=== PATIENT | female | born 2000 | race Hispanic/Latino ===

== ENCOUNTER 2023-12-26 10:30 | Emergency (ER) | payer SELFPAY ==
[2023-12-26 10:39] VITALS: BP 119/97; PULSE 86; RESP 16; TEMP 37.4; O2SAT 98; BMI 38.2
[2023-12-26 11:57] LABS: Adenovirus Not Detected (Not Detect); B. parapertussis Not Detected (Not Detecte); Bordetella pertussis Not Detected (Not Detect); Chlamydophila pneumoniae Not Detected (Not Detect); Coronavirus 229E Not Detected (Not Detect); Coronavirus HKU1 Not Detected (Not Detect); Coronavirus NL 63 Not Detected (Not Detect); Coronavirus OC43 Not Detected (Not Detect); Human Metapneumovirus Not Detected (Not Detect); Human Rhinovirus/Enterovirus Not Detected (Not Detect); Influenza A Not Detected (Not Detect); Influenza B Not Detected (Not Detect); Mycoplasma pneumoniae Not Detected (Not Detect); Parainfluenza Virus 1 Not Detected (Not Detect); Parainfluenza Virus 2 Not Detected (Not Detect); Parainfluenza Virus 3 Not Detected (Not Detect); Parainfluenza Virus 4 Not Detected (Not Detect); Respiratory Syncytial Virus Detected (Not Detect); SARS- CoV-2 Not Detected (Not Detecte)
--- NOTE | 2023-12-26 12:27 | ED.URI ---
HPI - URI/Sore Throat <Milly Gray PA-C - Last Filed: 12/26/23 12:31> General Chief Complaint: Upper Respiratory Symptoms Stated Complaint: V/Fever/chills/ pos.RSV/ Time Seen by Provider: 12/26/23 12:04 Source: patient Mode of arrival: Family Vehicle History of Present Illness HPI Narrative: 22-year-old female with past medical history asthma presents to the ED with 4 days of URI symptoms. Patient endorses sore throat, cough, myalgias, fatigue, nausea, vomiting. Patient also started experiencing diarrhea this morning. Patient states that she is having trouble tolerating p.o.. Patient has been exposed to RSV with several sick members of the family. Patient denies chest pain, shortness of breath. Patient has been using the albuterol inhaler prescribed to her for asthma as needed. Related Data Previous Rx's Medication Instructions Recorded ondansetron 4 mg disintegrating 4 mg PO Q8H PRN nausea and 12/26/23 tablet vomiting #10 tabs Allergies Allergy/AdvReac Type Severity Reaction Status Date / Time amoxicillin Allergy Hives Verified 12/26/23 10:47 benzonatate Allergy Verified 12/26/23 10:47 [From Marvin Davis] Review of Systems <Milly Gray PA-C - Last Filed: 12/26/23 12:31> Constitutional Constitutional: Reports body ache(s), Denies chills, Reports fatigue, Denies fever(s), Denies frequent falls, Denies lethargy and Denies weakness Eyes Eyes: Denies change in vision, Denies eye discharge, Denies irritation and Denies loss of vision ENT Ears, Nose, Mouth, and Throat: Denies change in voice, Denies dizziness, Denies neck pain, Reports sore throat and Denies throat swelling Cardiovascular Cardiovascular: Denies chest pain, Denies irregular heart rhythm, Denies lightheadedness, Denies palpitations, Denies dyspnea, Denies dyspnea on exertion and Denies orthopnea Respiratory Respiratory: Reports cough, Denies dyspnea, Denies dyspnea on exertion and Denies wheezing Gastrointestinal Gastrointestinal: Denies abdominal pain, Denies change in bowel habits, Reports diarrhea, Reports nausea and Reports vomiting Musculoskeletal Musculoskeletal: Denies neck pain and Denies numbness Integumentary/Breasts Skin/Breast: Denies pruritus, Denies erythema, Denies rash and Denies wounds Neurologic Neurologic: Denies behavioral changes, Denies confusion, Denies dizziness, Denies frequent falls, Denies loss of vision, Denies numbness and Denies weakness Psychiatric Psychiatric: Denies anxiety, Denies behavioral changes, Denies confusion, Denies depression, Denies homicidal ideation and Denies suicidal ideation Endocrine Endocrine: Reports fatigue, Denies flushing and Denies palpitations Hematologic/Lymphatic Hematologic/Lymphatic: Denies easy bruising Allergic/Immunologic Allergic/Immunologic: Denies urticaria, Denies throat swelling and Denies wheezing Patient History <Milly Gray PA-C - Last Filed: 12/26/23 12:31> Social History Smoking Status: Former smoker Smoking Status: Former smoker tobacco type: cigarettes alcohol intake frequency: 0-2 drinks per day Substance Use Type: does not use Exam <Milly Gray PA-C - Last Filed: 12/26/23 12:31> Narrative Exam Narrative: Const General:?cooperative, healthy appearing and comfortable [facility] Head:?normal to inspection Ears:?hearing grossly normal bilaterally Nose:?external nose normal Face and sinus:?normal facial exam and sinuses nontender Mouth:?oral mucosae normal Throat:?posterior oropharynx normal Eyes General:?appearance normal, both eyes and all related structures Neck Neck:?normal visual inspection and no lymphadenopathy noted Resp Effort & Inspection:?normal respiratory effort Auscultation:?clear to auscultation bilaterally Cardio Rate:?regular rate Rhythm:?regular rhythm Neuro General:?patient alert, patient awake and patient oriented x3 Initial Vital Signs Initial Vital Signs: Vital Signs Temperature 99.3 F 12/26/23 10:39 Pulse Rate 86 12/26/23 10:39 Respiratory Rate 16 12/26/23 10:39 Blood Pressure 119/97 H 12/26/23 10:39 Pulse Oximetry 98 12/26/23 10:39 Oxygen Delivery Method Room Air 12/26/23 10:39 <Shania Hastings MD - Last Filed: 12/27/23 18:26> Initial Vital Signs Initial Vital Signs: Vital Signs Temperature 99.3 F 12/26/23 10:39 Pulse Rate 86 12/26/23 10:39 Respiratory Rate 16 12/26/23 10:39 Blood Pressure 119/97 H 12/26/23 10:39 Pulse Oximetry 98 12/26/23 10:39 Oxygen Delivery Method Room Air 12/26/23 10:39 Course <Milly Gray PA-C - Last Filed: 12/26/23 12:31> Orders Ordered: ED Orders 12/26/23 10:49 Respiratory Panel (Film Array) Stat Strep Screen Stat Vital Signs Vital signs: Vital Signs - 8 hr 12/26/23 10:39 Temperature 99.3 F Pulse Rate 86 Respiratory Rate 16 Blood Pressure 119/97 H Pulse Oximetry 98 Oxygen Delivery Method Room Air <Shania Hastings MD - Last Filed: 12/27/23 18:26> Orders Ordered: ED Orders 12/26/23 10:49 Respiratory Panel (Film Array) Stat Strep Screen Stat Vital Signs Vital signs: Vital Signs - 8 hr 12/26/23 10:39 Temperature 99.3 F Pulse Rate 86 Respiratory Rate 16 Blood Pressure 119/97 H Pulse Oximetry 98 Oxygen Delivery Method Room Air MDM - URI/Sore Throat <Milly Gray PA-C - Last Filed: 12/26/23 12:31> Lab Data Labs: Lab Results 12/26/23 Range/Units 10:49 Chlamy pneumoniae PCR Not detected (Not Detect) Adenovirus (PCR) Not detected (Not Detect) B.parapertussis DNA PCR Not detected (Not Detecte) Coronavirus OC43 (PCR) Not detected (Not Detect) Coronavirus HKU1 (PCR) Not detected (Not Detect) Coronavirus 229E (PCR) Not detected (Not Detect) SARS-CoV-2 (PCR) Not detected (Not Detecte) Coronavirus NL63 (PCR) Not detected (Not Detect) Human Metapneumovir PCR Not detected (Not Detect) Influenza Type A (PCR) Not detected (Not Detect) Influenza Type B (PCR) Not detected (Not Detect) M. pneumoniae (PCR) Not detected (Not Detect) Parainfluenza 1 (PCR) Not detected (Not Detect) Parainfluenza 2 (PCR) Not detected (Not Detect) Parainfluenza 3 (PCR) Not detected (Not Detect) Parainfluenza 4 (PCR) Not detected (Not Detect) RSV (PCR) Detected H (Not Detect) Entero/Rhino (PCR) Not detected (Not Detect) MDM Narrative Medical decision making narrative: 22-year-old female with past medical history asthma presents to the ED with 4 days of URI symptoms. Respiratory panel was positive for RSV. Discussed findings with patient. Recommend good hydration. Prescribed Zofran for nausea control. Recommend ibuprofen, [id number] cough medications for symptom control. Recommend follow-up with PCP as soon as possible. ED return precautions discussed with patient. Patient verbalized understanding. Medical records reviewed: Yes <Shania Hastings MD - Last Filed: 12/27/23 18:26> Lab Data Labs: Lab Results 12/26/23 Range/Units 10:49 Chlamy pneumoniae PCR Not detected (Not Detect) Adenovirus (PCR) Not detected (Not Detect) B.parapertussis DNA PCR Not detected (Not Detecte) Coronavirus OC43 (PCR) Not detected (Not Detect) Coronavirus HKU1 (PCR) Not detected (Not Detect) Coronavirus 229E (PCR) Not detected (Not Detect) SARS-CoV-2 (PCR) Not detected (Not Detecte) Coronavirus NL63 (PCR) Not detected (Not Detect) Human Metapneumovir PCR Not detected (Not Detect) Influenza Type A (PCR) Not detected (Not Detect) Influenza Type B (PCR) Not detected (Not Detect) M. pneumoniae (PCR) Not detected (Not Detect) Parainfluenza 1 (PCR) Not detected (Not Detect) Parainfluenza 2 (PCR) Not detected (Not Detect) Parainfluenza 3 (PCR) Not detected (Not Detect) Parainfluenza 4 (PCR) Not detected (Not Detect) RSV (PCR) Detected H (Not Detect) Entero/Rhino (PCR) Not detected (Not Detect) Discharge Plan Departure Patient Disposition: Home Clinical Impression: RSV (respiratory syncytial virus infection) Instructions: DI for Viral Upper Respiratory Infection -- Adult Activity Restrictions/Additional Instructions: You were evaluated in the ED today for vomiting, fever, cough. Your respiratory panel was positive for RSV. You are being prescribed Zofran to control the nausea. Please continue to hydrate well. You may take ibuprofen with food for fever/aches and pains. You may continue to take [id number] cough medicine. You may use your albuterol inhaler for wheezing. Please follow-up with your PCP as soon as possible. Return to the ED if you have worsening symptoms, persistent vomiting despite the Zofran, chest pain, shortness of breath. Prescriptions: New ondansetron 4 mg tablet,disintegrating 4 mg PO Q8H PRN (Reason: nausea and vomiting) Qty: 10 0RF Stand Alone Forms: Patient Portal/API ED Sign-out <Shania Hastings MD - Last Filed: 12/27/23 18:26> Cosign ED Attending Cosignature Attestation: I was immediately available in the department for consultation throughout this patient's visit. Shania Hastings MD
[2023-12-26 12:30] VITALS: BP 125/81; PULSE 100; RESP 18; TEMP 37.2; O2SAT 97
--- NOTE | 2023-12-26 12:53 | PC.NURSE ---
RX called in to [facility] : Reglan 10mg PO Q8H dispense 10 tablets.
== END 2023-12-26 12:54 | disposition home or self-care (01) ==
PROVIDERS: Emergency Medicine; Emergency Provider Student in an Organized Health Care Education/Training Program
DX: J06.9 Acute upper respiratory infection, unspecified (principal); B97.4 Respiratory syncytial virus as the cause of diseases classified elsewhere; R11.0 Nausea; Z87.891 Personal history of nicotine dependence
CPT/HCPCS: 87081; 87633; 99281; 99283